=== PATIENT | female | born 1990 | race Caucasian/White ===

== ENCOUNTER 2017-03-24 01:18 | Inpatient (IN) | payer BC ==
--- NOTE | 2017-03-24 01:40 | EDM.PDOC ---
ED HPI GENERAL MEDICAL PROBLEM - General Chief Complaint: Drug or Alcohol Abuse Stated Complaint: [facility] Time Seen by Provider: 03/24/17 01:24 Source of Information: Reports: Patient, EMS History Limitations: Reports: Intoxication - History of Present Illness INITIAL COMMENTS - FREE TEXT/NARRATIVE: The patient came via [facility] for overdose. She took 40 1mg klonipin in an attempt to kill herself. She has been depressed and had an issue with her boyfriend. She also drank some wine. EMS informed us there were empty wine bottles in her house. She tried to overdose back in July and she was sen to [facility] in [place]. She sees a psychologist there. She does admit to me she was trying to hurt herself. She denies fever, chills, cough, chest, pain, shortness of breath, nausea or vomiting. Onset: Sudden Duration: Hour(s): Improves with: Reports: None Worsens with: Reports: None Associated Symptoms: Reports: No Other Symptoms - Related Data Allergies Allergy/AdvReac Type Severity Reaction Status Date / Time amoxicillin Allergy Hives Verified 03/13/16 13:00 Penicillins Allergy Hives Verified 03/13/16 13:00 Home Meds: Home Meds ALPRAZolam [Xanax] 0.5 mg PO Q6H PRN 03/13/16 [History] ClonazePAM [KlonoPIN] 1 mg PO BEDTIME 03/13/16 [History] [place] Carbonate 1,200 mg PO DAILY 03/13/16 [History] busPIRone [Buspar] 7.5 mg PO BID #15 tablet 03/13/16 [Rx] Past Medical History Psychiatric History: Reports: Anxiety, Bipolar Social & Family History - Family History Family Medical History: Noncontributory - Tobacco Use Smoking Status *Q: Current Every Day Smoker Years of Tobacco use: 10 Packs/Tins Daily: 0.5 - Recreational Drug Use Recreational Drug Use: No ED ROS GENERAL - Review of Systems Review Of Systems: See Below Constitutional: Reports: No Symptoms HEENT: Reports: No Symptoms Respiratory: Reports: No Symptoms Cardiovascular: Reports: No Symptoms Endocrine: Reports: No Symptoms GI/Abdominal: Reports: No Symptoms : Reports: No Symptoms Musculoskeletal: Reports: No Symptoms Skin: Reports: No Symptoms Neurological: Reports: Confusion Psychiatric: Reports: Suicidal Ideation ED EXAM, BEHAVIORAL HEALTH - Physical Exam Exam: See Below Exam Limited By: No Limitations General Appearance: Alert, No Apparent Distress Ears: Normal External Exam Nose: Normal Inspection Head: Atraumatic, Normocephalic Neck: Normal Inspection Respiratory/Chest: No Respiratory Distress, Lungs Clear, Normal Breath Sounds Cardiovascular: Regular Rate, Rhythm, No Edema, No Murmur GI/Abdominal: Soft, Non-Tender, No Organomegaly, No Mass Extremities: Normal Inspection Neurological: Other (She has slurred speech and appears intoxicated) COURSE, BEHAVIORAL HEALTH COMP - Course Vital Signs: Last Vital Signs Temp 98.4 F 03/24/17 01:23 Pulse 122 H 03/24/17 01:23 Resp 19 03/24/17 01:23 BP 143/109 H 03/24/17 01:23 Pulse Ox 94 L 03/24/17 01:52 Orders, Labs, Meds: Active Orders 24 hr Category Date Time Status Cardiac Monitoring [RC] . DIRECTED Care 03/24/17 01:33 Active EKG Documentation Completion [RC] STAT Care 03/24/17 01:34 Active Oxygen Therapy [RC] PRN Care 03/24/17 01:33 Active Peripheral IV Care [RC] . DIRECTED Care 03/24/17 01:34 Active Sodium Chloride 0.9% [Normal Saline] 1,000 ml Med 03/24/17 01:45 Active IV ASDIRECTED Sodium Chloride 0.9% [Saline Flush] Med 03/24/17 01:33 Active 10 ml FLUSH ASDIRECTED PRN Peripheral IV Insertion Adult [OM.PC] Stat Oth 03/24/17 01:33 Ordered Medication Orders Sodium Chloride (Normal Saline) 1,000 mls @ 125 mls/hr IV ASDIRECTED WARREN Last Admin: 03/24/17 01:51 Dose: 125 mls/hr Sodium Chloride (Saline Flush) 10 ml FLUSH ASDIRECTED PRN PRN Reason: Keep Vein Open Last Admin: 03/24/17 01:51 Dose: 10 ml Laboratory Tests 03/24/17 03/24/17 03/24/17 Range/Units 01:35 01:59 01:59 WBC 8.85 (3.98-10.04) K/mm3 RBC 4.92 (3.98-5.22) M/mm3 Hgb 15.2 (11.2-15.7) gm/L Hct 43.1 (34.1-44.9) % MCV 87.6 (79.4-94.8) fl MCH 30.9 (25.6-32.2) pg MCHC 35.3 (32.2-35.5) g/dl RDW Std Deviation 40.2 (36.4-46.3) fL Plt Count 270 (182-369) K/mm3 MPV 11.4 (9.4-12.3) fl Neut % (Auto) 64.9 (34.0-71.1) % Lymph % (Auto) 26.2 (19.3-51.7) % [place] % (Auto) 6.3 (4.7-12.5) % Eos % (Auto) 1.6 (0.7-5.8) Baso % (Auto) 0.8 (0.1-1.2) % Neut # (Auto) 5.74 (1.56-6.13) K/mm3 Lymph # (Auto) 2.32 (1.18-3.74) K/mm3 [place] # (Auto) 0.56 H (0.24-0.36) K/mm3 Eos # (Auto) 0.14 (0.04-0.36) K/mm3 Baso # (Auto) 0.07 (0.01-0.08) K/mm3 Sodium 147 H (136-145) mEq/L Potassium 3.4 L (3.5-5.1) mEq/L Chloride 110 H (98-107) mEq/L Carbon Dioxide 24 (21-32) mEq/L Anion Gap 16.4 H (5-15) BUN 8 (7-18) mg/dL Creatinine 0.6 (0.55-1.02) mg/dL Est Cr Clr Drug Dosing 116.50 mL/min Estimated GFR (MDRD) > 60 (>60) mL/min BUN/Creatinine Ratio 13.3 L (14-18) Glucose 101 (74-106) mg/dL Calcium 9.0 (8.5-10.1) mg/dL Total Bilirubin 0.3 (0.2-1.0) mg/dL AST 14 L (15-37) U/L ALT 25 (14-59) U/L Alkaline Phosphatase 88 (46-116) U/L Total Protein 7.5 (6.4-8.2) g/dl Albumin 3.9 (3.4-5.0) g/dl Globulin 3.6 gm/dL Albumin/Globulin Ratio 1.1 (1-2) HCG, Qual (NEGATIVE) Salicylates (2.8-20) mg/dL Urine Opiates Screen Negative (NEGATIVE) Ur Buprenorphine Scrn Negative (NEGATIVE) Ur Oxycodone Screen Negative (NEGATIVE) Urine Methadone Screen Negative (NEGATIVE) Ur Propoxyphene Screen Negative (NEGATIVE) Acetaminophen 0 L (10-30) ug/mL Ur Barbiturates Screen Negative (NEGATIVE) Ur Tricyclics Screen Negative (NEGATIVE) Ur Phencyclidine Scrn Negative (NEGATIVE) Ur Amphetamine Screen Negative (NEGATIVE) U Methamphetamines Scrn Negative (NEGATIVE) U Benzodiazepines Scrn Negative (NEGATIVE) U Cocaine Metab Screen Negative (NEGATIVE) U Marijuana (THC) Screen Negative (NEGATIVE) Ethyl Alcohol 0.16 (0.00) gm% 03/24/17 03/24/17 Range/Units 01:59 01:59 WBC (3.98-10.04) K/mm3 RBC (3.98-5.22) M/mm3 Hgb (11.2-15.7) gm/L Hct (34.1-44.9) % MCV (79.4-94.8) fl MCH (25.6-32.2) pg MCHC (32.2-35.5) g/dl RDW Std Deviation (36.4-46.3) fL Plt Count (182-369) K/mm3 MPV (9.4-12.3) fl Neut % (Auto) (34.0-71.1) % Lymph % (Auto) (19.3-51.7) % [place] % (Auto) (4.7-12.5) % Eos % (Auto) (0.7-5.8) Baso % (Auto) (0.1-1.2) % Neut # (Auto) (1.56-6.13) K/mm3 Lymph # (Auto) (1.18-3.74) K/mm3 [place] # (Auto) (0.24-0.36) K/mm3 Eos # (Auto) (0.04-0.36) K/mm3 Baso # (Auto) (0.01-0.08) K/mm3 Sodium (136-145) mEq/L Potassium (3.5-5.1) mEq/L Chloride (98-107) mEq/L Carbon Dioxide (21-32) mEq/L Anion Gap (5-15) BUN (7-18) mg/dL Creatinine (0.55-1.02) mg/dL Est Cr Clr Drug Dosing mL/min Estimated GFR (MDRD) (>60) mL/min BUN/Creatinine Ratio (14-18) Glucose (74-106) mg/dL Calcium (8.5-10.1) mg/dL Total Bilirubin (0.2-1.0) mg/dL AST (15-37) U/L ALT (14-59) U/L Alkaline Phosphatase (46-116) U/L Total Protein (6.4-8.2) g/dl Albumin (3.4-5.0) g/dl Globulin gm/dL Albumin/Globulin Ratio (1-2) HCG, Qual Negative (NEGATIVE) Salicylates 2.0 L (2.8-20) mg/dL Urine Opiates Screen (NEGATIVE) Ur Buprenorphine Scrn (NEGATIVE) Ur Oxycodone Screen (NEGATIVE) Urine Methadone Screen (NEGATIVE) Ur Propoxyphene Screen (NEGATIVE) Acetaminophen (10-30) ug/mL Ur Barbiturates Screen (NEGATIVE) Ur Tricyclics Screen (NEGATIVE) Ur Phencyclidine Scrn (NEGATIVE) Ur Amphetamine Screen (NEGATIVE) U Methamphetamines Scrn (NEGATIVE) U Benzodiazepines Scrn (NEGATIVE) U Cocaine Metab Screen (NEGATIVE) U Marijuana (THC) Screen (NEGATIVE) Ethyl Alcohol (0.00) gm% Medications Generic Name Dose Route Start Last Admin Trade Name Freq PRN Reason Stop Dose Admin Sodium Chloride 1,000 mls @ 125 mls/hr 03/24/17 01:45 03/24/17 01:51 Normal Saline IV 125 mls/hr ASDIRECTED WARREN Administration Sodium Chloride 10 ml 03/24/17 01:33 03/24/17 01:51 Saline Flush FLUSH 10 ml ASDIRECTED PRN Administration Keep Vein Open Discontinued Medications Generic Name Dose Route Start Last Admin Trade Name Freq PRN Reason Stop Dose Admin Nicotine 14 mg 03/24/17 02:53 03/24/17 02:58 Habitrol TRDERM 03/24/17 02:54 14 mg ONETIME ONE Administration Re-Assessment/Re-Exam: I have ordered an IV, labs, UDS and EKG. Her CBC was negative. Her Na was a little elevated at 147. Her K was a little low at 3.4. Her HCG was negative. Her salicylates and tylenol were negaitve. Her UDS was negative. Her ETOH was 0.16. I called Dr Gregg and she agreed to the admission. Departure - Departure Time of Disposition: 03:05 Disposition: Admitted As Inpatient 65 Condition: poor Clinical Impression: Alcohol abuse Depression Qualifiers: Depression Type: major depressive disorder Major depression recurrence: recurrent Active/Remission status: currently active Major depression episode severity: moderate Qualified Code(s): F33.1 - Major depressive disorder, recurrent, moderate Overdose Qualifiers: Encounter type: initial encounter Injury intent: intentional self-harm Qualified Code(s): T50.902A - Poisoning by unspecified drugs, medicaments and biological substances, intentional self-harm, initial encounter Alcohol intoxication Qualifiers: Complication of substance-induced condition: with unspecified complication Qualified Code(s): F10.129 - Alcohol abuse with intoxication, unspecified Suicide gesture Qualifiers: Encounter type: initial encounter Qualified Code(s): X83.8XXA - Intentional self-harm by other specified means, initial encounter - Discharge Information - My Orders Last 24 Hours: My Active Orders 03/24/17 01:33 Cardiac Monitoring [RC] . DIRECTED Oxygen Therapy [RC] PRN Sodium Chloride 0.9% [Saline Flush] 10 ml FLUSH ASDIRECTED PRN Peripheral IV Insertion Adult [OM.PC] Stat 03/24/17 01:34 EKG Documentation Completion [RC] STAT Peripheral IV Care [RC] . DIRECTED 03/24/17 01:45 Sodium Chloride 0.9% [Normal Saline] 1,000 ml IV ASDIRECTED - Assessment/Plan Last 24 Hours: My Active Orders 03/24/17 01:33 Cardiac Monitoring [RC] . DIRECTED Oxygen Therapy [RC] PRN Sodium Chloride 0.9% [Saline Flush] 10 ml FLUSH ASDIRECTED PRN Peripheral IV Insertion Adult [OM.PC] Stat 03/24/17 01:34 EKG Documentation Completion [RC] STAT Peripheral IV Care [RC] . DIRECTED 03/24/17 01:45 Sodium Chloride 0.9% [Normal Saline] 1,000 ml IV ASDIRECTED
[2017-03-24] MEDS ORDERED: Sodium Chloride 0.9% 1,000 ML IV SCH (01:45)
[2017-03-24] MEDS: Sodium Chloride 0.9% 10 ML Syringe FLUSH PRN ×2 (01:51→09:57)
[2017-03-24 02:28] LABS: ACETAMINOPHEN 0 ug/mL (10-30)
[2017-03-24] MEDS ORDERED: Nicotine 14 MG/24 Hr Patch TRDERM ONE (02:53)
[2017-03-24] MEDS ORDERED: Ondansetron 4 MG/2 ML SDV IVPUSH PRN (04:14)
[2017-03-24] MEDS ORDERED: Metoprolol Tartrate 5 MG/5 ML SDV IVPUSH PRN (07:48)
[2017-03-24] MEDS ORDERED: LORazepam 2 MG/ML MDV IVPUSH PRN ×2 (07:53→12:57)
[2017-03-24] MEDS ORDERED: Haloperidol Lactate 5 MG/ML SDV IVPUSH PRN (07:53)
[2017-03-24] MEDS: cloNIDine 0.1 MG Tab PO SCH ×4 (08:17→23:47)
[2017-03-24] MEDS: chlordiazePOXIDE 25 MG Cap PO SCH ×3 (08:18→23:50)
[2017-03-24] MEDS ORDERED: LORazepam 2 MG/ML MDV IVPUSH ONE (09:37)
--- NOTE | 2017-03-24 10:22 | PCM.HP ---
H&P History of Present Illness - General Date of Service: 03/24/17 Admit Problem/Dx: Admission Diagnosis/Problem Admission Diagnosis/Problem Drug overdose Source of Information: Provider History Limitations: Reports: No Limitations - History of Present Illness Initial Comments - Free Text/Narative: 26 year old female presents after trying to kill herself with use of prescription and alcohol. She admits to previous attempts; has been admitted as an inpatient in the past to [facility] for depression with suicide attempt. On this occasion she has taken 40 mg of Klonopin (40 x 1mg) with ETOH. Onset of Symptoms: Reports: Sudden Symptom Onset Date: 03/23/17 Duration of Symptoms: Reports: Hour(s): Location: Reports: Generalized Quality: Reports: Same as Previous Episode Improves with: Reports: None Worsens with: Reports: None Associated Symptoms: Reports: Other (depression) Headache Pain Score (Numeric/FACES): 2 - Related Data Allergies/Adverse Reactions: Allergies Allergy/AdvReac Type Severity Reaction Status Date / Time amoxicillin Allergy Hives Verified 03/13/16 13:00 Penicillins Allergy Hives Verified 03/13/16 13:00 Home Medications: Home Meds ARIPiprazole [Abilify] 15 mg PO DAILY 03/24/17 [History] [place] Carbonate 1,200 mg PO DAILY 03/24/17 [History] cloNIDine [Catapres] 0.1 mg PO DAILY PRN 03/24/17 [History] Past Medical History Cardiovascular History: Reports: Hypertension [employer] History: Reports: Therapeutic Psychiatric History: Reports: Anxiety, Bipolar, Depression - Infectious Disease History Infectious Disease History: Reports: None Social & Family History - Family History Family Medical History: Noncontributory - Tobacco Use Smoking Status *Q: Current Every Day Smoker Years of Tobacco use: 13 Packs/Tins Daily: 0.5 Used Tobacco, but Quit: No Second Hand Smoke Exposure: No - Caffeine Use Caffeine Use: Reports: Coffee - Recreational Drug Use Recreational Drug Use: No H&P Review of Systems - Review of Systems: Review Of Systems: See Below General: Reports: No Symptoms HEENT: Reports: No Symptoms Pulmonary: Reports: No Symptoms Cardiovascular: Reports: No Symptoms Gastrointestinal: Reports: No Symptoms Genitourinary: Reports: No Symptoms Musculoskeletal: Reports: No Symptoms Skin: Reports: No Symptoms Psychiatric: Reports: Depression Neurological: Reports: No Symptoms Hematologic/Lymphatic: Reports: No Symptoms Immunologic: Reports: No Symptoms Exam - Exam Exam: See Below - Vital Signs Vital Signs: Last Vital Signs Temp 37.6 C 03/24/17 08:24 Pulse 101 H 03/24/17 09:58 Resp 18 03/24/17 08:24 BP 177/123 H 03/24/17 09:58 Pulse Ox 96 03/24/17 08:24 Weight: 193.6 kg - Exam Quality Assessment: Supplemental Oxygen, DVT Prophylaxis General: Alert, Oriented, Cooperative HEENT: Conjunctiva Clear, EOMI, Nares Patent, Normal Nasal Septum, Pupils Equal , Pupils Reactive, PERRLA Neck: Supple, Trachea Midline Lungs: Normal Respiratory Effort Cardiovascular: Regular Rate, Regular Rhythm Abdomen: Normal Bowel Sounds, Soft (Female) Exam: Deferred Rectal (Female) Exam: Deferred Back Exam: Normal Inspection Extremities: Normal Pulses Skin: Warm, Dry Neurological: Cranial Nerves Intact, Normal Speech Neuro Extensive - Mental Status: Alert, Oriented x3 Neuro Extensive - Motor, Sensory, Reflexes: CN II-XII Intact Psychiatric: Alert, Depressed - Patient Data Lab Results last 24 hrs: Laboratory Results - last 24 hr 03/24/17 03/24/17 Range/Units 08:00 08:00 WBC 8.14 (3.98-10.04) K/mm3 RBC 4.81 (3.98-5.22) M/mm3 Hgb 14.9 (11.2-15.7) gm/L Hct 42.9 (34.1-44.9) % MCV 89.2 (79.4-94.8) fl MCH 31.0 (25.6-32.2) pg MCHC 34.7 (32.2-35.5) g/dl RDW Std Deviation 41.6 (36.4-46.3) fL Plt Count 266 (182-369) K/mm3 MPV 11.2 (9.4-12.3) fl Neut % (Auto) 57.6 (34.0-71.1) % Lymph % (Auto) 26.7 (19.3-51.7) % [place] % (Auto) 12.3 (4.7-12.5) % Eos % (Auto) 2.3 (0.7-5.8) Baso % (Auto) 1.0 (0.1-1.2) % Neut # (Auto) 4.69 (1.56-6.13) K/mm3 Lymph # (Auto) 2.17 (1.18-3.74) K/mm3 [place] # (Auto) 1.00 H (0.24-0.36) K/mm3 Eos # (Auto) 0.19 (0.04-0.36) K/mm3 Baso # (Auto) 0.08 (0.01-0.08) K/mm3 Sodium 145 (136-145) mEq/L Potassium 3.8 (3.5-5.1) mEq/L Chloride 109 H (98-107) mEq/L Carbon Dioxide 24 (21-32) mEq/L Anion Gap 15.8 H (5-15) BUN 10 (7-18) mg/dL Creatinine 0.7 (0.55-1.02) mg/dL Est Cr Clr Drug Dosing 99.86 mL/min Estimated GFR (MDRD) > 60 (>60) mL/min BUN/Creatinine Ratio 14.3 (14-18) Glucose 89 (74-106) mg/dL Calcium 9.1 (8.5-10.1) mg/dL Magnesium 1.9 (1.8-2.4) mg/dl Result Diagrams: 03/24/17 08:00 03/24/17 08:00 *Q Meaningful Use (ADM) - VTE *Q VTE Criteria *Q: - Stroke *Q Stroke Criteria *Q: - AMI *Q AMI Criteria *Q: - Problem List (1) Alcohol abuse SNOMED Code(s): 08651584 ICD Code: F10.10 - ALCOHOL ABUSE, UNCOMPLICATED Status: Acute Current Visit: Yes (2) Alcohol intoxication SNOMED Code(s): 86099827 ICD Code: F10.129 - ALCOHOL ABUSE WITH INTOXICATION, UNSPECIFIED Status: Acute Current Visit: Yes Qualifiers: Complication of substance-induced condition: with unspecified complication (3) Depression SNOMED Code(s): 69579830 ICD Code: F32.9 - MAJOR DEPRESSIVE DISORDER, SINGLE EPISODE, UNSPECIFIED Status: Acute Current Visit: Yes Qualifiers: Depression Type: major depressive disorder Major depression recurrence: recurrent Active/Remission status: currently active Major depression episode severity: moderate Qualified Code(s): F33.1 - Major depressive disorder, recurrent, moderate (4) Overdose SNOMED Code(s): 34489583 ICD Code: T50.901A - POISONING BY UNSP DRUG/MEDS/BIOL SUBST, ACCIDENTAL, INIT Status: Acute Current Visit: Yes Qualifiers: Encounter type: initial encounter Injury intent: intentional self-harm Qualified Code(s): T50.902A - Poisoning by unspecified drugs, medicaments and biological substances, intentional self-harm, initial encounter (5) Suicide gesture SNOMED Code(s): 01205627 ICD Code: X83.8XXA - INTENTIONAL SELF-HARM BY OTHER SPECIFIED MEANS, INIT ENCNTR Status: Acute Current Visit: Yes Qualifiers: Encounter type: initial encounter Qualified Code(s): X83.8XXA - Intentional self-harm by other specified means, initial encounter (6) Bipolar disorder SNOMED Code(s): 66239964 ICD Code: F31.9 - BIPOLAR DISORDER, UNSPECIFIED Status: Acute Current Visit: No Qualifiers: Active/Remission status: currently active Current bipolar episode type: depressed Current episode severity: moderate Qualified Code(s): F31.32 - Bipolar disorder, current episode depressed, moderate Problem List Initiated/Reviewed/Updated: Yes Orders Last 24hrs: Active Orders 24 hr Category Date Time Status Bedrest [RC] ASDIRECTED Care 03/24/17 04:14 Active Suicide Precautions [RC] Q15M Care 03/24/17 04:14 Active Nothing Per Oral Diet [DIET] Diet 03/24/17 Lunch Active Regular Diet [DIET] Diet 03/24/17 Breakfast Active Haloperidol Lactate [Haldol] Med 03/24/17 07:53 Active 1 mg IVPUSH Q8H PRN LORazepam [Ativan] Med 03/24/17 07:53 Active 2 mg IVPUSH Q6H PRN Metoprolol Tartrate [Lopressor] Med 03/24/17 07:48 Active 5 mg IVPUSH Q6H PRN Ondansetron [Zofran] Med 03/24/17 04:14 Active 4 mg IVPUSH Q6HR PRN chlordiazePOXIDE [Librium] Med 03/24/17 08:00 Active 25 mg PO Q8H cloNIDine [Catapres] Med 03/24/17 08:00 Active 0.1 mg PO Q8H Resuscitation Status Routine Resus Stat 03/24/17 04:14 Ordered Medication Orders Chlordiazepoxide HCl (Librium) 25 mg PO Q8H [facility] Last Admin: 03/24/17 08:18 Dose: 25 mg Clonidine HCl (Catapres) 0.1 mg PO Q8H [facility] Last Admin: 03/24/17 08:17 Dose: 0.1 mg Haloperidol Lactate (Haldol) 1 mg IVPUSH Q8H PRN PRN Reason: restlessness Lorazepam (Ativan) 2 mg IVPUSH Q6H PRN PRN Reason: Anxiety Metoprolol Tartrate (Lopressor) 5 mg IVPUSH Q6H PRN PRN Reason: Tachycardia Ondansetron HCl (Zofran) 4 mg IVPUSH Q6HR PRN PRN Reason: Nausea Sodium Chloride (Saline Flush) 10 ml FLUSH ASDIRECTED PRN PRN Reason: Keep Vein Open Last Admin: 03/24/17 09:57 Dose: 10 ml Admin: 03/24/17 01:51 Dose: 10 ml Assessment/Plan Comment:: Impression: Major depression with suicide attempt Bipolar Disorder Prescrition drug abuse ETOH abuse Plan: IVF MVI/Folic Acid/Thiamine Benzodiazepine/Antipyschotic agents SA Counselor/Psychiatric evaluation Suggest IP therapy for above. Home meds Daily Labs DVT/GI prophylaxis
[2017-03-24] MEDS ORDERED: QUEtiapine 25 MG Tab PO ONE (15:30)
--- NOTE | 2017-03-24 19:02 | CONS ---
CONSULTING PHYSICIAN: Ruiz Suarez LAC DATE OF CONSULTATION: 03/24/2017 TIME: 5:17 p.m. IDENTIFICATION: The patient is a 26-year-old female who was admitted to [facility] on 03/24/2017 after a suicide attempt by in-combination use of Klonopin and alcohol. Her admitting DORIAN is 0.16. An alcohol and drug consultation was requested by her medical treatment team. SOURCE OF INFORMATION: The patient's self report, hospital records, background research, and [facility]. The patient refused to sign ROIs to speak with her parents or to obtain psychiatric records from Dr. Amin at [facility] in [place], [place]. HISTORY OF PRESENT ILLNESS: The patient reports that she was raised in [place], [place] by her biological parents, who are still together. She has 3 brothers. She graduated from [employer] in 2007 where she maintained above average grades. She was not involved in extracurricular activities as she worked for [employer] for 5 years throughout her school years. She states that she got along well with other kids at school and had good friends. After graduating from high school, she completed a semester at [employer] and moved to [place]. She attended the [employer] in [place] and graduated in 2009. 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 Four years ago, she moved back to [place] and opened [employer]. 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 The patient has never been , but had a relationship this past year that ended in July 2016. This relationship was the primary cause of her 1st attempted suicide as she states "he just used me." She is currently in another relationship; however, he broke up with her after she attempted to suicide and texted her today, 03/24/2017 that they were over. She reports that this suicide attempt was also primarily because of this relationship. MENTAL HEALTH: The patient reports that she has been diagnosed with bipolar disorder and her psychiatrist is Dr. Amin at [facility] in [facility]. In reviewing her prescription drug monitoring report, it indicates that she was prescribed alprazolam 0.5 mg between March 2014 and December 2015, then switched to clonazepam 0.5 mg 30/10 until July 2016. The patient stopped using this medication in July and subsequently tried to commit suicide in that month, July 2016. The patient reports that she has not seen her psychiatrist in quite some time and she has not been taking any medication. SUBSTANCE ABUSE HISTORY: Tobacco. The patient reports that she started smoking cigarettes around age 16 and currently smokes a half a pack a day. Cannabis. The patient reports that she started smoking pot while in high school and since that time, has smoked "here and there" maybe once every couple months if she is around people who have it, she smokes with them. She denies buying her own or selling the drugs. Alcohol. The patient reports that she began drinking at age 13 and drank every weekend while she was in high school as well as the semester at [employer]. She would drink up to a bottle of [employer] straight from the bottle. In high school, she began to drink to blackout drunk and typically drank to this level per occasion. She reports drinking to intoxication when she drinks and when asked what her parents thought about her drinking, she replies "they choose to see what they want to see." When she was in [place] the patient reports drinking 2-3 times a week to blackout drunk, typically a 12-pack of beer and 2 bottles of wine. While in [place], she drank on the weekends 2-8 mixed drinks per occasion. Since moving back to [place], the patient has been drinking every night at least a bottle of wine nightly. When she goes to the bar or parties on her days off, she drinks to blackout drunk typically 8-10 [place] [employer] or up to a bottle of [employer]. In the past year, she switched from whiskey to vodka or Tequila and typically drinks a bottle of wine after work and on days off or at the bar 7 to 9 mixed drinks and usually drinking to blackout drunk. She reports putting herself in dangerous situations while in a blackout and has gone home with multiple men over the years while in a blackout. In the past week, she reports drinking 2 bottles of wine a night and as she sunk into depression realized she had a bottle of Klonopin, which she had been prescribed to her in the past. She states she just did not care. The patient denies all use of other illicit or illicit drugs. DIAGNOSES: The patient meets DSM 5 criteria for the following diagnosis: 1. F10.20, alcohol use disorder, moderate. 2. F17.200, tobacco use disorder, severe. 3. F12.20, cannabis use disorder, moderate. ASAM DIMENSIONS: 1. Dimension 1: Score 1. The patient can tolerate and cope with withdrawal discomfort. Poses minimal risk of severe withdrawal. 2. Dimension 2: Score 0. The patient displays full functioning with good ability to cope with physical discomfort. 3. Dimension 3: Score 3. The patient has difficulty with impulse control and lacks coping skills. She is demonstrating frequent thoughts of suicide including a plan and means as this is her 2nd suicide attempt in 8 months. She seems to have a mental health disorder that is significantly impairing her. 4. Dimension 4: Score 3. The patient seems to have minimal awareness of her addiction or mental health disorder and is superficially cooperative. 5. Dimension 5: Score 3. The patient has little recognition and understanding of relapse and recidivism issues and displays a high vulnerability for further substance use or mental health problems. 6. Dimension 6: Score 3. The patient is not engaged in structured meaningful activity, has significant pressure from her family to perform and her current love life is the cause of her suicidal behavior. ASSESSMENT SUMMARY: The patient appears to be a nice young woman who suffers from a dual diagnosis self-reported bipolar disorder and biologically driven alcohol use disorder, moderate and what appears to be stage II alcoholism. Her primary diagnosis, however, seems to be her mental health problems as throughout her evaluation there was a re-occurring theme of low self-esteem manifesting by her allowing people in her life to treat her disrespectfully and compromising herself to please them emotionally and physically. 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 She reports she feels she is a disappointment to her parents. In this, her 2nd suicide attempt, there is a common denominator with her 1st attempt love relationships. She attempted suicide in large part because of her current boyfriend and to compound continued risk, he broke up with her today 03/24/2017 one day after her attempt to take her life. Exacerbating her mental health issues is daily drinking in excess and often times to black out intoxication. She appears to be in stage II alcoholism as she is not presenting with physical withdrawal, however, further assessment is needed to understand the severity of her psychological dependence. She is reporting that she has been drinking "to cope" with her life as we discussed why she has not been seeing her psychiatrist or using prescribed medications. The patient reports that her alcohol use has been her coping mechanism. The patient is meeting ASAM criteria for level 3.5, clinically managed, high intensity residential treatment. With a strong psychiatric component; however, her alcohol use cannot be adequately addressed until her mental health issues are evaluated and she is under psychiatric care. RECOMMENDATION: The patient is referred to Dr. Cabrera for further psychiatric evaluation and possible placement in a psychiatric facility to address mental health issues. After the patient has been stabilized and is under the care of a psychiatrist. Level 3.5, clinically managed, high intensity residential treatment is recommended to address her substance abuse issues. [facility] /[id number]
[2017-03-24] MEDS ORDERED: QUEtiapine 25 MG Tab PO SCH (21:00)
[2017-03-24] MEDS: Thiamine 100 MG Tab PO SCH (21:19)
[2017-03-24] MEDS: Topiramate 25 MG Tab PO SCH (21:19)
[2017-03-25] MEDS: cloNIDine 0.1 MG Tab PO SCH ×2 (07:56→16:00)
[2017-03-25] MEDS: buPROPion 150 MG Tab.ER PO SCH (08:38)
[2017-03-25] MEDS: Folic Acid 1 MG Tab PO SCH (08:38)
[2017-03-25] MEDS: chlordiazePOXIDE 25 MG Cap PO SCH (08:38)
[2017-03-25] MEDS: Topiramate 25 MG Tab PO SCH ×2 (08:39→20:54)
[2017-03-25] MEDS: QUEtiapine 25 MG Tab PO SCH ×2 (08:39→20:54)
[2017-03-25] MEDS: Lithium Carbonate 300 MG Tab.ER PO SCH (08:39)
[2017-03-25] MEDS ORDERED: Metoprolol Tartrate 5 MG/5 ML SDV IVPUSH PRN (08:58)
[2017-03-25] MEDS ORDERED: hydrALAZINE 20 MG/ML SDV IVPUSH PRN (08:58)
--- NOTE | 2017-03-25 08:58 | PCM.PN ---
- General Info Date of Service: 03/25/17 Admission Dx/Problem (Free Text): Admission Diagnosis/Problem Admission Diagnosis/Problem Drug overdose Subjective Update: Follow up Functional Status: Reports: pain controlled, tolerating diet, ambulating, urinating, new symptoms (tired) - Review of Systems General: Denies: Fever, Malaise HEENT: Reports: no symptoms Pulmonary: Denies: shortness of breath Cardiovascular: Denies: Chest Pain Gastrointestinal: Denies: Abdominal pain, Nausea, Vomiting Genitourinary: Reports: no symptoms Musculoskeletal: Denies: neck pain Skin: Denies: cyanosis, jaundice, diaphoresis, pruritis, rash Neurological: Denies: Confusion, Headache, Pre-Existing Deficit, Syncope, Weakness Psychiatric: Denies: confusion, depression, anxiety, agitation, cravings, hallucinations, suicidal ideation, homicidal ideation Systems Review Comment:: No overnight issues. She feels tired this am. She is relatively well. She is not homocidal or suicidal. - Patient Data Vitals - most recent: Last Vital Signs Temp 36.7 C 03/25/17 07:50 Pulse 83 03/25/17 04:00 Resp 15 03/25/17 07:50 BP 114/88 03/25/17 07:56 Pulse Ox 94 L 03/25/17 07:50 Weight - most recent: 88.224 kg I&O - last 24 hours: Intake & Output 03/24/17 03/25/17 03/25/17 22:59 06:59 14:59 Intake Total 1160 350 Output Total 600 300 Balance 1160 -250 -300 Lab Results last 24 hrs: Laboratory Results - last 24 hr 03/25/17 03/25/17 Range/Units 06:20 06:20 WBC 9.05 (3.98-10.04) K/mm3 RBC 4.63 (3.98-5.22) M/mm3 Hgb 14.5 (11.2-15.7) gm/L Hct 41.4 (34.1-44.9) % MCV 89.4 (79.4-94.8) fl MCH 31.3 (25.6-32.2) pg MCHC 35.0 (32.2-35.5) g/dl RDW Std Deviation 41.3 (36.4-46.3) fL Plt Count 236 (182-369) K/mm3 MPV 11.4 (9.4-12.3) fl Neut % (Auto) 67.7 (34.0-71.1) % Lymph % (Auto) 20.3 (19.3-51.7) % Oliver % (Auto) 8.8 (4.7-12.5) % Eos % (Auto) 2.4 (0.7-5.8) Baso % (Auto) 0.6 (0.1-1.2) % Neut # (Auto) 6.12 (1.56-6.13) K/mm3 Lymph # (Auto) 1.84 (1.18-3.74) K/mm3 Oliver # (Auto) 0.80 H (0.24-0.36) K/mm3 Eos # (Auto) 0.22 (0.04-0.36) K/mm3 Baso # (Auto) 0.05 (0.01-0.08) K/mm3 Sodium 142 (136-145) mEq/L Potassium 3.2 L (3.5-5.1) mEq/L Chloride 108 H (98-107) mEq/L Carbon Dioxide 22 (21-32) mEq/L Anion Gap 15.2 H (5-15) BUN 12 (7-18) mg/dL Creatinine 0.7 (0.55-1.02) mg/dL Est Cr Clr Drug Dosing 99.86 mL/min Estimated GFR (MDRD) > 60 (>60) mL/min BUN/Creatinine Ratio 17.1 (14-18) Glucose 101 (74-106) mg/dL Calcium 8.9 (8.5-10.1) mg/dL Magnesium 1.8 (1.8-2.4) mg/dl Med Orders - Current: Current Medications Bupropion HCl (Wellbutrin Xl) 150 mg PO DAILY [facility] Last Admin: 03/25/17 08:38 Dose: 150 mg Chlordiazepoxide HCl (Librium) 25 mg PO Q8H [facility] Last Admin: 03/25/17 08:38 Dose: 25 mg Clonidine HCl (Catapres) 0.1 mg PO Q8H [facility] Last Admin: 03/25/17 07:56 Dose: Not Given Folic Acid (Folic Acid) 1 mg PO DAILY [facility] Last Admin: 03/25/17 08:38 Dose: 1 mg [place] Carbonate (Lithobid) 1,200 mg PO DAILY [facility] Last Admin: 03/25/17 08:39 Dose: 1,200 mg Lorazepam (Ativan) 1 mg IVPUSH Q6H PRN PRN Reason: Anxiety Ondansetron HCl (Zofran) 4 mg IVPUSH Q6HR PRN PRN Reason: Nausea Quetiapine Fumarate (Seroquel) 25 mg PO BID [facility] Last Admin: 03/25/17 08:39 Dose: 25 mg Sodium Chloride (Saline Flush) 10 ml FLUSH ASDIRECTED PRN PRN Reason: Keep Vein Open Last Admin: 03/24/17 09:57 Dose: 10 ml Thiamine HCl (Vitamin B-1) 100 mg PO BEDTIME [facility] Last Admin: 03/24/17 21:19 Dose: 100 mg Topiramate (Topamax) 25 mg PO BID [facility] Stop: 03/31/17 09:00 Last Admin: 03/25/17 08:39 Dose: 25 mg Topiramate (Topamax) 50 mg PO BID [facility] Discontinued Medications Haloperidol Lactate (Haldol) 1 mg IVPUSH Q8H PRN PRN Reason: restlessness Sodium Chloride (Normal Saline) 1,000 mls @ 125 mls/hr IV ASDIRECTED [facility] Last Admin: 03/24/17 01:51 Dose: 125 mls/hr Lorazepam (Ativan) 2 mg IVPUSH Q6H PRN PRN Reason: Anxiety Lorazepam (Ativan) 1 mg IVPUSH ONETIME ONE Stop: 03/24/17 09:38 Last Admin: 03/24/17 09:57 Dose: 1 mg Metoprolol Tartrate (Lopressor) 5 mg IVPUSH Q6H PRN PRN Reason: Tachycardia Nicotine (Habitrol) 14 mg TRDERM ONETIME ONE Stop: 03/24/17 02:54 Last Admin: 03/24/17 02:58 Dose: 14 mg Non-Formulary Medication (Aripiprazole [Abilify]) 15 mg PO DAILY [facility] Quetiapine Fumarate (Seroquel) 50 mg PO BEDTIME [facility] Quetiapine Fumarate (Seroquel) 50 mg PO ONETIME ONE Stop: 03/24/17 15:31 Last Admin: 03/24/17 16:11 Dose: 50 mg Quetiapine Fumarate (Seroquel) 12.5 mg PO BID [facility] - Exam General: alert, oriented, cooperative, no acute distress HEENT: Pupils equal, Pupils reactive, EOMI, Mucous membr. moist/pink Neck: supple, trachea midline, no JVD, no thyromegaly Lungs: Clear to auscultation, Normal respiratory effort Cardiovascular: Regular Rate, Regular Rhythm Abdomen: bowel sounds present, soft, no tenderness, no distension (Female) Exam: Deferred Back Exam: Normal Inspection, Decreased Range of Motion Extremities: no edema, normal pulses, no tenderness/swelling, no clubbing, no cyanosis, no calf tenderness Skin: warm, dry, intact Neurological: no new focal deficit Psy/Mental Status: alert, normal affect, normal mood, withdrawal symptoms. No: anxious, depressed, suicidal ideation, homicidal ideation - Problem List Review Problem List Initiated/Reviewed/Updated: Yes - My Orders Last 24 Hours: My Active Orders 03/25/17 09:00 ARIPiprazole [Abilify] 15 mg PO DAILY [place] Carbonate [[place] Carbonate] 1,200 mg PO DAILY - Plan Plan:: Assessment/Plan: Acute: Major depression with suicide attempt via ingestion of Klonopin - Consulted Dr. Cabrera: recommends Wellbutrin 150 q am, Topamax 50 mg BID for 7 days then 50 mg thereafter for mood stability and Anxiety, Seroquel 50 mg po qhs for racing thoughts, ruminations, anxiety and mood stability - Also recommended, AA rep, pastoral guidance, Chemical dependency rehab and Inpatient psych once medically stable Bipolar Disorder - Dr. Cabrera following Prescription Drug Abuse - Ingestion a hand full of klonopin she used to take but has been discontinued by her Psych Dr. Gibbs - This is not her first episode - She had done this before each time she has relationship issues ETOH Abuse - DORIAN 0.16 - CIWA score is low - Continue CIWA protocol Excessive Sedation (Seroquel, Topamax and Librium +/- Ativan) - Seroquel cut down to 25 mg po BID - Discontinue Librium Anxiety - On Seroquel and Topamax - She was taking clodinine PRN for maintenance dose, should be stopped Nicotine Abuse - Received nicotine patch x1 Chronic: HTN PTSD ETOH Dependence Nicotine Dependence Plan: She is clinically stable Continue MVI/Folic Acid/Thiamine Routine AM Labs Change Clonidine from schedule to PRN dosing DVT/GI prophylaxis Additional orders as above Possible transfer to inpatient psych in AM
[2017-03-25] MEDS ORDERED: QUEtiapine 25 MG Tab PO SCH (09:00)
[2017-03-25] MEDS ORDERED: LITHIUM CARBONATE 1200 MG PO SCH (09:00)
[2017-03-25] MEDS ORDERED: Non-Formulary Medication 1 Each (Aripiprazole [Abilify] 15 MG) PO SCH (09:00)
[2017-03-25] MEDS ORDERED: Magnesium Oxide 400 MG Tab PO ONE (09:15)
[2017-03-25] MEDS: Potassium Chloride 20 MEQ Tab.ER PO SCH ×2 (09:32→13:23)
[2017-03-25] MEDS: Sodium Chloride 0.9% 10 ML Syringe FLUSH PRN (09:35)
--- NOTE | 2017-03-25 13:07 | CONS ---
CONSULTING PHYSICIAN: Clay Cabrera MD DATE OF CONSULTATION: 03/24/2017 This is a 60-minute inpatient clinical event. IDENTIFICATION: The patient is a 26-year-old female who is admitted to the inpatient MICU at [facility] in [place], [place], on 03/24/2017. She is seen for psychiatric evaluation. CHIEF COMPLAINT: "I took some pills mixed with alcohol...I got into a fight with my boyfriend." HISTORY OF PRESENT ILLNESS: This patient is a 26-year-old female who reports that she had been drinking and overdosed on about 40 Klonopin in the phase of her alcohol intoxication. She states she has been having relationship issues with her boyfriend. She states she has been increasingly isolative. She has been depressed, having a lot of anxiety, lot of crying episodes, and some mood swings. She states she has been sleeping quite poorly prior to admission, about 4 hours of sleep per 24-hour period. She states that she has been having racing thoughts, ruminations, poor focus, poor concentration, and lack of appetite. She states that she did have an back in 06/2016 and since that time, she has been more depressed in dealing with a lot of guilty feelings. She states prior to this event, she had generally been doing pretty good. At this point in time, she is denying that she is suicidal or homicidal. She is also denying any psychotic, delusional, or paranoid symptoms. She does report a prior suicide attempt in 07/2016, soon after the , and this also was under similar circumstances where she was drinking and heavily intoxicated. She did have a BAL of 0.16 on admission. She states that she would like to get on some type of medications to help her with her depression, her mood swings, her anxiety, and her racing thoughts, and ruminations. MEDICATIONS: Medications at the time of presentation; Librium, Catapres, and Ativan. ALLERGIES: 1. Amoxicillin. 2. Penicillin. PAST MEDICAL HISTORY: Hypertension. REVIEW OF SYSTEMS: Aside from cardiovascular, all other major organ systems are negative at this point in time for acute difficulties or complications. FAMILY PSYCHIATRIC AND CD HISTORY: The patient reports maternal grandmother to have a history of bipolar affective disease, and she knows there is also history of alcoholism in the family. PAST PSYCHIATRIC AND CD HISTORY: The patient reports one psychiatric hospitalization in 07/2016. Denies any chemical dependency treatment. She states she normally drinks a couple of glasses of wine per week, but she has been drinking heavier lately. She reports 2 suicide attempts, the first one was in 07/2016. She does reports some self- injurious behavior history about one time per year. In terms of frequency, she denies any eating disorder history. She is a klke-kffu-zgd-day smoker x13 years. Denies any abuse issues while being raised. Medication history includes lithium, which caused her quite a bit of nausea; and Abilify, which helped with her mood. She has a past psychiatric diagnosis of bipolar affective disease, depression. Her primary psychiatrist is Dr. Eloisa putnam at [facility]. SOCIAL HISTORY: The patient was born in [place], [place], and raised in [place], [place]. She is the fourth of 4 siblings, having 3 brothers. The patient's parents were throughout her childhood and adolescence. Father managed the [employer]. Mother worked as a real estate operations manager. The patient's highest level of education is cosmetology degree and one semester of college. She has never been . She does not have any children. She reports one in 06/2016, that she "thinks about a lot, and she feels sad and guilty." She is currently working at a [employer]. 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 She lives in [place] by herself. Denies having any weapons at her house. She does have a dog. She denies any prior service or any current legal difficulties. She is an [employer]. She enjoys working out, going to the gym, shopping, and spending time with her dog. MENTAL STATUS EXAM: The patient is a 26-year-old white female in no apparent distress. Speech is of regular rate and rhythm. The patient is cognitively oriented. Psychomotor activities within normal limits. There is no abnormal motor movements or tics observed. Gait and station are not observed. This patient is lying in bed for the interview. Mood is depressed and anxious. Affect is consistent with stated mood, restrictive, but cooperative overall for the purposes of the inpatient psychiatric consult. There is no behavioral or stated evidence of acute suicidal or homicidal ideation or acute psychotic, delusional, or paranoid symptoms. Thought processes are significant for racing thoughts and ruminations; however, there are no acute manic symptoms or loose associations evident. Judgment and insight do appear impaired at this point in time. Motivation for help, however, appears fair to good. VITALS: 130/90, 93, 21, and 98.6 degrees. IMPRESSION: [place] I: 1. Bipolar affective disease, mixed type, F31.60. 2. Post-traumatic stress disorder, F43.10. 3. Alcohol dependence, F10.20. [place] II: None. [place] III: 1. Hypertension. 2. Medical complications status post overdose. [place] IV: Severe. [place] V: 50. PLAN: 1. Begin trial of Wellbutrin XL 150 mg q.a.m. for mood. 2. Begin Topamax 25 mg b.i.d. x7 days and increasing to 50 mg b.i.d. thereafter to help with mood instability and anxiety reduction. 3. Begin Seroquel 50 mg at bedtime for racing thoughts and ruminations, anxiety reduction, mood instability, as well as sleep initiation and maintenance. 4. Folic acid supplementation. 5. Thiamine supplementation. 6. rep to visit the patient. 7. Pastoral guidance. 8. Chemical dependency consult to assess need for treatment. 9. Continue one-to-one and have primary medical treatment team reassess in 24 hours for safety purposes. 10.Recommend transferring the patient to inpatient psychiatry when medically stable for further psychiatric stabilization. 11.Recommend the patient follow up with outpatient psychiatry when she is discharged back to community to assess her overall function and efficacy of her newly initiated treatment plan. 12.I will continue follow up with the patient on an as-needed basis going forward while she remains on the unit. 13.We will follow up with the patient sooner if any complications in the interim. 14.Crisis plan is in place. [facility] /[id number]
[2017-03-25] MEDS: Thiamine 100 MG Tab PO SCH (20:55)
[2017-03-25] MEDS: Nicotine 21 MG/24 Hr Patch TRDERM SCH (22:01)
[2017-03-26] MEDS: cloNIDine 0.1 MG Tab PO SCH ×2 (00:51→09:33)
--- NOTE | 2017-03-26 09:10 | PCM.DCSUM1 ---
Discharge Summary - Discharge Data Discharge Date: 03/26/17 Discharge Disposition: DC/Tfer to Inpt Rehab Fac 62 Condition: Good - Discharge Diagnosis/Problem(s) (1) Depression SNOMED Code(s): 61019180 ICD Code: F32.9 - MAJOR DEPRESSIVE DISORDER, SINGLE EPISODE, UNSPECIFIED Status: Acute Qualifiers: Depression Type: major depressive disorder Major depression recurrence: recurrent Active/Remission status: currently active Major depression episode severity: moderate Qualified Code(s): F33.1 - Major depressive disorder, recurrent, moderate (2) Nicotine dependence SNOMED Code(s): 36267836 ICD Code: F17.200 - NICOTINE DEPENDENCE, UNSPECIFIED, UNCOMPLICATED Status : Chronic Qualifiers: Nicotine product type: cigarettes Substance use status: uncomplicated Qualified Code(s): F17.210 - Nicotine dependence, cigarettes, uncomplicated (3) PTSD (post-traumatic stress disorder) SNOMED Code(s): 81981449 ICD Code: F43.10 - POST-TRAUMATIC STRESS DISORDER, UNSPECIFIED Status: Chronic (4) HTN (hypertension) SNOMED Code(s): 73221026 ICD Code: I10 - ESSENTIAL (PRIMARY) HYPERTENSION Status: Chronic Qualifiers: Hypertension type: essential hypertension Qualified Code(s): I10 - Essential (primary) hypertension (5) Alcohol dependence SNOMED Code(s): 69207801, 002519489 ICD Code: F10.20 - ALCOHOL DEPENDENCE, UNCOMPLICATED Status: Chronic Qualifiers: Substance use status: unspecified alcohol-induced disorder Qualified Code(s ): F10.29 - Alcohol dependence with unspecified alcohol-induced disorder (6) Anxiety SNOMED Code(s): 21616529 Status: Chronic (7) Bipolar disorder SNOMED Code(s): 90296548 ICD Code: F31.9 - BIPOLAR DISORDER, UNSPECIFIED Status: Chronic Qualifiers: Active/Remission status: currently active Current bipolar episode type: depressed Current episode severity: moderate Qualified Code(s): F31.32 - Bipolar disorder, current episode depressed, moderate (8) Alcohol intoxication SNOMED Code(s): 55009380 ICD Code: F10.129 - ALCOHOL ABUSE WITH INTOXICATION, UNSPECIFIED Status: Resolved Qualifiers: Complication of substance-induced condition: with unspecified complication Qualified Code(s): F10.929 - Alcohol use, unspecified with intoxication, unspecified (9) Overdose SNOMED Code(s): 59684986 ICD Code: T50.901A - POISONING BY UNSP DRUG/MEDS/BIOL SUBST, ACCIDENTAL, INIT Status: Resolved Qualifiers: Encounter type: initial encounter Injury intent: intentional self-harm Qualified Code(s): T50.902A - Poisoning by unspecified drugs, medicaments and biological substances, intentional self-harm, initial encounter - Patient Summary/Data Operative Procedure(s) Performed: None Complications: None Consults: Consultations 03/24/17 15:38 Consult to Spiritual Care [CONS] Routine 03/24/17 15:41 Consult to Sales Office Administrator [CONS] Routine Recommended Follow-up Testing/Procedures: None Hospital Course: Patient was primarily admitted for suicide attempt via ingestion of non toxic substance. She was provided supportive care until she was medically cleared. Psych and SA were consulted for further evaluation. Both specialist recommended inpatient psych treatment as well as chemical dependency rehab. On this admission she was also found to be intoxicated with a DORIAN level of 0.16. She was put on CIWA protocol and she slowly improve on this regimen. Her CIWA score on the day of her discharge was almost zero. Patient is now medically stable for transfer. Her hospital course was uncomplicated. She will be going in for inpatient psych treatment in [place] under the services of Dr. Amin who follows her outpatient. Patient will leave the facility as soon as local law enforcement staff is here to transport to [place]. - Patient Instructions Diet: Usual Diet as Tolerated Activity: As Tolerated Driving: Do Not Drive Showering/Bathing: May Shower Notify Provider of: Fever, Increased Pain, Swelling and Redness, Nausea and/or Vomiting Other/Special Instructions: - Please take all medications as directed. - Follow up with your family doctor and with your psychiatrist right after discharge from inpatient rehab. - If you experience mental health crisis, call 911 or take yourself to the nearest hospital for further medical care. - Transfer to [place] for inpatient psych care - Discharge Plan Prescriptions/Med Rec: QUEtiapine [SEROquel] 25 mg PO BID #60 tablet Topiramate [Topamax] 50 mg PO BID #12 tablet Topiramate [Topamax] 25 mg PO BID #60 tablet buPROPion [Wellbutrin XL] 150 mg PO DAILY #30 tab.er Home Medications: Home Meds QUEtiapine [SEROquel] 25 mg PO BID #60 tablet 03/26/17 [Rx] Topiramate [Topamax] 25 mg PO BID #60 tablet 03/26/17 [Rx] Topiramate [Topamax] 50 mg PO BID #12 tablet 03/26/17 [Rx] buPROPion [Wellbutrin XL] 150 mg PO DAILY #30 tab.er 03/26/17 [Rx] Patient Handouts: Smoking Cessation, Tips for Success, [id number], No-harm Safety Contract, Suicidal Feelings: How to Help Yourself, Alcohol Abuse and Nutrition Referrals: PCP,None [Primary Care Provider] - - Discharge Summary/Plan Comment DC Time >30 min.: Yes (45 mins) Discharge Summary/Plan Comment: Transfer to [place] for inpatient psych treatment under the services of Dr. Amin (patient's psychiatrist). - General Info Date of Service: 03/26/17 Admission Dx/Problem (Free Text: Admission Diagnosis/Problem Admission Diagnosis/Problem Drug overdose Subjective Update: Follow up Functional Status: Reports: pain controlled, tolerating diet, ambulating, urinating, new symptoms (tired) - Review of Systems General: Denies: Fever, Weakness, Fatigue, Malaise HEENT: Reports: no symptoms Pulmonary: Denies: shortness of breath Cardiovascular: Denies: Chest Pain, Palpitations, Dyspnea on Exertion Gastrointestinal: Denies: Abdominal pain, Decreased appetite, Difficulty swallowing, Nausea, Vomiting Genitourinary: Reports: no symptoms Musculoskeletal: Reports: no symptoms Skin: Reports: no symptoms Neurological: Denies: Confusion, Dizziness, Headache, Seizure, Difficulty Walking, Weakness, Gait Disturbance Psychiatric: Denies: depression, mood lability, anxiety, agitation, hallucinations, suicidal ideation, homicidal ideation Systems Review Comment: No overnight or acute issues. She feels tired but clinically stable. She has no new complaints. - Patient Data Vitals - Most Recent: Last Vital Signs Temp 36.8 C 03/26/17 07:42 Pulse 72 03/26/17 07:42 Resp 14 03/26/17 07:42 BP 140/90 03/26/17 07:42 Pulse Ox 96 03/26/17 07:42 Weight - Most Recent: 87.77 kg I&O - Last 24 hours: Intake & Output 03/25/17 03/26/17 03/26/17 22:59 06:59 14:59 Intake Total 570 891 Balance 570 891 Lab Results - Last 24 hrs: Laboratory Results - last 24 hr 03/26/17 03/26/17 Range/Units 06:03 06:03 WBC 10.94 H (3.98-10.04) K/mm3 RBC 4.79 (3.98-5.22) M/mm3 Hgb 14.8 (11.2-15.7) gm/L Hct 42.9 (34.1-44.9) % MCV 89.6 (79.4-94.8) fl MCH 30.9 (25.6-32.2) pg MCHC 34.5 (32.2-35.5) g/dl RDW Std Deviation 40.7 (36.4-46.3) fL Plt Count 241 (182-369) K/mm3 MPV 11.1 (9.4-12.3) fl Neut % (Auto) 71.5 H (34.0-71.1) % Lymph % (Auto) 17.8 L (19.3-51.7) % [place] % (Auto) 7.0 (4.7-12.5) % Eos % (Auto) 3.0 (0.7-5.8) Baso % (Auto) 0.4 (0.1-1.2) % Neut # (Auto) 7.82 H (1.56-6.13) K/mm3 Lymph # (Auto) 1.95 (1.18-3.74) K/mm3 [place] # (Auto) 0.77 H (0.24-0.36) K/mm3 Eos # (Auto) 0.33 (0.04-0.36) K/mm3 Baso # (Auto) 0.04 (0.01-0.08) K/mm3 Sodium 142 (136-145) mEq/L Potassium 3.8 (3.5-5.1) mEq/L Chloride 110 H (98-107) mEq/L Carbon Dioxide 21 (21-32) mEq/L Anion Gap 14.8 (5-15) BUN 6 L (7-18) mg/dL Creatinine 0.7 (0.55-1.02) mg/dL Est Cr Clr Drug Dosing 99.86 mL/min Estimated GFR (MDRD) > 60 (>60) mL/min BUN/Creatinine Ratio 8.6 L (14-18) Glucose 102 (74-106) mg/dL Calcium 9.1 (8.5-10.1) mg/dL Magnesium 2.2 (1.8-2.4) mg/dl Med Orders - Current: Current Medications Bupropion HCl (Wellbutrin Xl) 150 mg PO DAILY [facility] Last Admin: 03/25/17 08:38 Dose: 150 mg Clonidine HCl (Catapres) 0.1 mg PO Q8H [facility] Last Admin: 03/26/17 00:51 Dose: 0.1 mg Folic Acid (Folic Acid) 1 mg PO DAILY [facility] Last Admin: 03/25/17 08:38 Dose: 1 mg Hydralazine HCl (Apresoline) 20 mg IVPUSH Q4H PRN PRN Reason: Hypertension [place] Carbonate (Lithobid) 1,200 mg PO DAILY [facility] Last Admin: 03/25/17 08:39 Dose: 1,200 mg Lorazepam (Ativan) 1 mg IVPUSH Q6H PRN PRN Reason: Anxiety Last Admin: 03/25/17 17:53 Dose: 1 mg Magnesium Sulfate (Pharmacy To Dose - Magnesium Replacement) 1 dose .XX ASDIRECTED [facility] Metoprolol Tartrate (Lopressor) 5 mg IVPUSH Q4H PRN PRN Reason: Tachycardia Miscellaneous Information (Remove Patch) 1 ea TRDERM DAILY [facility] Nicotine (Habitrol) 21 mg TRDERM DAILY [facility] Last Admin: 03/25/17 22:01 Dose: 21 mg Ondansetron HCl (Zofran) 4 mg IVPUSH Q6HR PRN PRN Reason: Nausea Potassium Chloride (Pharmacy To Dose - Potassium Replacement) 1 dose .XX ASDIRECTED [facility] Quetiapine Fumarate (Seroquel) 25 mg PO BID [facility] Last Admin: 03/25/17 20:54 Dose: 25 mg Sodium Chloride (Saline Flush) 10 ml FLUSH ASDIRECTED PRN PRN Reason: Keep Vein Open Last Admin: 03/25/17 09:35 Dose: 10 ml Thiamine HCl (Vitamin B-1) 100 mg PO BEDTIME [facility] Last Admin: 03/25/17 20:55 Dose: 100 mg Topiramate (Topamax) 25 mg PO BID [facility] Stop: 03/31/17 09:00 Last Admin: 03/25/17 20:54 Dose: 25 mg Topiramate (Topamax) 50 mg PO BID [facility] Discontinued Medications Chlordiazepoxide HCl (Librium) 25 mg PO Q8H [facility] Last Admin: 03/25/17 08:38 Dose: 25 mg Haloperidol Lactate (Haldol) 1 mg IVPUSH Q8H PRN PRN Reason: restlessness Sodium Chloride (Normal Saline) 1,000 mls @ 125 mls/hr IV ASDIRECTED [facility] Last Admin: 03/24/17 01:51 Dose: 125 mls/hr Lorazepam (Ativan) 2 mg IVPUSH Q6H PRN PRN Reason: Anxiety Lorazepam (Ativan) 1 mg IVPUSH ONETIME ONE Stop: 03/24/17 09:38 Last Admin: 03/24/17 09:57 Dose: 1 mg Magnesium Oxide (Magnesium Oxide) 400 mg PO ONETIME ONE Stop: 03/25/17 09:16 Last Admin: 03/25/17 09:33 Dose: 400 mg Metoprolol Tartrate (Lopressor) 5 mg IVPUSH Q6H PRN PRN Reason: Tachycardia Nicotine (Habitrol) 14 mg TRDERM ONETIME ONE Stop: 03/24/17 02:54 Last Admin: 03/24/17 02:58 Dose: 14 mg Non-Formulary Medication (Aripiprazole [Abilify]) 15 mg PO DAILY [facility] Potassium Chloride (Klor-Con M20) 40 meq PO Q4H [facility] Stop: 03/25/17 13:16 Last Admin: 03/25/17 13:23 Dose: 40 meq Quetiapine Fumarate (Seroquel) 50 mg PO BEDTIME [facility] Quetiapine Fumarate (Seroquel) 50 mg PO ONETIME ONE Stop: 03/24/17 15:31 Last Admin: 03/24/17 16:11 Dose: 50 mg Quetiapine Fumarate (Seroquel) 12.5 mg PO BID [facility] - Exam General: Reports: alert, oriented, cooperative, no acute distress HEENT: Reports: Pupils equal, Pupils reactive, Mucous membr. moist/pink Neck: Reports: supple, trachea midline, no JVD, no thyromegaly Lungs: Reports: Clear to auscultation, Normal respiratory effort Cardiovascular: Reports: Regular Rate, Regular Rhythm Abdomen: Reports: bowel sounds present, soft, no tenderness, no distension (Female) Exam: Deferred Rectal (Female) Exam: Deferred Back Exam: Reports: Normal Inspection, Decreased Range of Motion Extremities: Reports: no edema, normal pulses, no tenderness/swelling, no clubbing, no cyanosis, no calf tenderness Skin: Reports: warm, dry, intact Neurological: Reports: no new focal deficit Psy/Mental Status: Reports: alert, normal affect, normal mood. Denies: suicidal ideation, homicidal ideation, withdrawal symptoms *Q Meaningful Use (DIS) - VTE *Q VTE Criteria *Q: - Stroke *Q Stroke Criteria *Q: - AMI *Q AMI Criteria *Q:
[2017-03-26] MEDS: Folic Acid 1 MG Tab PO SCH (09:33)
[2017-03-26] MEDS: Nicotine 21 MG/24 Hr Patch TRDERM SCH (09:33)
[2017-03-26] MEDS: Lithium Carbonate 300 MG Tab.ER PO SCH (09:34)
[2017-03-26] MEDS: Topiramate 25 MG Tab PO SCH (09:35)
[2017-03-26] MEDS: buPROPion 150 MG Tab.ER PO SCH (09:35)
[2017-03-26] MEDS: QUEtiapine 25 MG Tab PO SCH (09:35)
--- NOTE | 2017-03-26 10:11 | PCM.PN ---
- General Info Date of Service: 03/26/17 Admission Dx/Problem (Free Text): Admission Diagnosis/Problem Admission Diagnosis/Problem Drug overdose Subjective Update: Follow up Functional Status: Reports: pain controlled, tolerating diet, ambulating, urinating, new symptoms (tired) - Review of Systems General: Denies: Fever, Chills HEENT: Reports: no symptoms Pulmonary: Denies: shortness of breath Cardiovascular: Denies: Chest Pain Gastrointestinal: Denies: Abdominal pain, Nausea, Vomiting Genitourinary: Reports: no symptoms Musculoskeletal: Reports: no symptoms Skin: Denies: cyanosis, pallor, diaphoresis Neurological: Denies: Confusion, Pre-Existing Deficit, Difficulty Walking, Weakness, Gait Disturbance Psychiatric: Denies: depression, anxiety, agitation, hallucinations, suicidal ideation, homicidal ideation Systems Review Comment:: No overnight issues. She feels tired but she reports no acute issues. Her vitals are stable. - Patient Data Vitals - most recent: Last Vital Signs Temp 36.8 C 03/26/17 07:42 Pulse 72 03/26/17 07:42 Resp 14 03/26/17 07:42 BP 140/90 03/26/17 09:33 Pulse Ox 96 03/26/17 07:42 Weight - most recent: 87.77 kg I&O - last 24 hours: Intake & Output 03/25/17 03/26/17 03/26/17 22:59 06:59 14:59 Intake Total 570 891 Balance 570 891 Lab Results last 24 hrs: Laboratory Results - last 24 hr 03/26/17 03/26/17 Range/Units 06:03 06:03 WBC 10.94 H (3.98-10.04) K/mm3 RBC 4.79 (3.98-5.22) M/mm3 Hgb 14.8 (11.2-15.7) gm/L Hct 42.9 (34.1-44.9) % MCV 89.6 (79.4-94.8) fl MCH 30.9 (25.6-32.2) pg MCHC 34.5 (32.2-35.5) g/dl RDW Std Deviation 40.7 (36.4-46.3) fL Plt Count 241 (182-369) K/mm3 MPV 11.1 (9.4-12.3) fl Neut % (Auto) 71.5 H (34.0-71.1) % Lymph % (Auto) 17.8 L (19.3-51.7) % [place] % (Auto) 7.0 (4.7-12.5) % Eos % (Auto) 3.0 (0.7-5.8) Baso % (Auto) 0.4 (0.1-1.2) % Neut # (Auto) 7.82 H (1.56-6.13) K/mm3 Lymph # (Auto) 1.95 (1.18-3.74) K/mm3 [place] # (Auto) 0.77 H (0.24-0.36) K/mm3 Eos # (Auto) 0.33 (0.04-0.36) K/mm3 Baso # (Auto) 0.04 (0.01-0.08) K/mm3 Sodium 142 (136-145) mEq/L Potassium 3.8 (3.5-5.1) mEq/L Chloride 110 H (98-107) mEq/L Carbon Dioxide 21 (21-32) mEq/L Anion Gap 14.8 (5-15) BUN 6 L (7-18) mg/dL Creatinine 0.7 (0.55-1.02) mg/dL Est Cr Clr Drug Dosing 99.86 mL/min Estimated GFR (MDRD) > 60 (>60) mL/min BUN/Creatinine Ratio 8.6 L (14-18) Glucose 102 (74-106) mg/dL Calcium 9.1 (8.5-10.1) mg/dL Magnesium 2.2 (1.8-2.4) mg/dl Med Orders - Current: Current Medications Bupropion HCl (Wellbutrin Xl) 150 mg PO DAILY [facility] Last Admin: 03/26/17 09:35 Dose: 150 mg Clonidine HCl (Catapres) 0.1 mg PO Q8H [facility] Last Admin: 03/26/17 09:33 Dose: 0.1 mg Folic Acid (Folic Acid) 1 mg PO DAILY [facility] Last Admin: 03/26/17 09:33 Dose: 1 mg Hydralazine HCl (Apresoline) 20 mg IVPUSH Q4H PRN PRN Reason: Hypertension [place] Carbonate (Lithobid) 1,200 mg PO DAILY [facility] Last Admin: 03/26/17 09:34 Dose: 1,200 mg Lorazepam (Ativan) 1 mg IVPUSH Q6H PRN PRN Reason: Anxiety Last Admin: 03/25/17 17:53 Dose: 1 mg Magnesium Sulfate (Pharmacy To Dose - Magnesium Replacement) 1 dose .XX ASDIRECTED [facility] Metoprolol Tartrate (Lopressor) 5 mg IVPUSH Q4H PRN PRN Reason: Tachycardia Miscellaneous Information (Remove Patch) 1 ea TRDERM DAILY [facility] Last Admin: 03/26/17 09:35 Dose: 1 ea Nicotine (Habitrol) 21 mg TRDERM DAILY [facility] Last Admin: 03/26/17 09:33 Dose: 21 mg Ondansetron HCl (Zofran) 4 mg IVPUSH Q6HR PRN PRN Reason: Nausea Potassium Chloride (Pharmacy To Dose - Potassium Replacement) 1 dose .XX ASDIRECTED [facility] Quetiapine Fumarate (Seroquel) 25 mg PO BID [facility] Last Admin: 03/26/17 09:35 Dose: 25 mg Sodium Chloride (Saline Flush) 10 ml FLUSH ASDIRECTED PRN PRN Reason: Keep Vein Open Last Admin: 03/25/17 09:35 Dose: 10 ml Thiamine HCl (Vitamin B-1) 100 mg PO BEDTIME [facility] Last Admin: 03/25/17 20:55 Dose: 100 mg Topiramate (Topamax) 25 mg PO BID [facility] Stop: 03/31/17 09:00 Last Admin: 03/26/17 09:35 Dose: 25 mg Topiramate (Topamax) 50 mg PO BID [facility] Discontinued Medications Chlordiazepoxide HCl (Librium) 25 mg PO Q8H [facility] Last Admin: 03/25/17 08:38 Dose: 25 mg Haloperidol Lactate (Haldol) 1 mg IVPUSH Q8H PRN PRN Reason: restlessness Sodium Chloride (Normal Saline) 1,000 mls @ 125 mls/hr IV ASDIRECTED [facility] Last Admin: 03/24/17 01:51 Dose: 125 mls/hr Lorazepam (Ativan) 2 mg IVPUSH Q6H PRN PRN Reason: Anxiety Lorazepam (Ativan) 1 mg IVPUSH ONETIME ONE Stop: 03/24/17 09:38 Last Admin: 03/24/17 09:57 Dose: 1 mg Magnesium Oxide (Magnesium Oxide) 400 mg PO ONETIME ONE Stop: 03/25/17 09:16 Last Admin: 03/25/17 09:33 Dose: 400 mg Metoprolol Tartrate (Lopressor) 5 mg IVPUSH Q6H PRN PRN Reason: Tachycardia Nicotine (Habitrol) 14 mg TRDERM ONETIME ONE Stop: 03/24/17 02:54 Last Admin: 03/24/17 02:58 Dose: 14 mg Non-Formulary Medication (Aripiprazole [Abilify]) 15 mg PO DAILY [facility] Potassium Chloride (Klor-Con M20) 40 meq PO Q4H [facility] Stop: 03/25/17 13:16 Last Admin: 03/25/17 13:23 Dose: 40 meq Quetiapine Fumarate (Seroquel) 50 mg PO BEDTIME [facility] Quetiapine Fumarate (Seroquel) 50 mg PO ONETIME ONE Stop: 03/24/17 15:31 Last Admin: 03/24/17 16:11 Dose: 50 mg Quetiapine Fumarate (Seroquel) 12.5 mg PO BID [facility] - Exam General: alert, oriented, cooperative, no acute distress HEENT: Pupils equal, Pupils reactive, EOMI, Mucous membr. moist/pink Neck: supple, trachea midline, no JVD, no thyromegaly Lungs: Clear to auscultation, Normal respiratory effort Cardiovascular: Regular Rate, Regular Rhythm Abdomen: bowel sounds present, soft, no tenderness, no distension (Female) Exam: Deferred Back Exam: Normal Inspection, Decreased Range of Motion Extremities: no edema, normal pulses, no tenderness/swelling, no clubbing, no cyanosis, no calf tenderness Peripheral Pulses: 3+: Posterior Tibial (L), Posterior Tibial (R), Dorsalis Pedis (L), Dorsalis Pedis (R) Skin: warm, dry, intact Neurological: no new focal deficit Psy/Mental Status: alert, normal affect, normal mood - Problem List & Annotations (1) Depression SNOMED Code(s): 29531128 Code(s): F32.9 - MAJOR DEPRESSIVE DISORDER, SINGLE EPISODE, UNSPECIFIED Status: Acute Current Visit: Yes Qualifiers: Depression Type: major depressive disorder Major depression recurrence: recurrent Active/Remission status: currently active Major depression episode severity: moderate Qualified Code(s): F33.1 - Major depressive disorder, recurrent, moderate (2) Nicotine dependence SNOMED Code(s): 67178848 Code(s): F17.200 - NICOTINE DEPENDENCE, UNSPECIFIED, UNCOMPLICATED Status: Chronic Current Visit: Yes Qualifiers: Nicotine product type: cigarettes Substance use status: uncomplicated Qualified Code(s): F17.210 - Nicotine dependence, cigarettes, uncomplicated (3) PTSD (post-traumatic stress disorder) SNOMED Code(s): 39322285 Code(s): F43.10 - POST-TRAUMATIC STRESS DISORDER, UNSPECIFIED Status: Chronic Current Visit: Yes (4) HTN (hypertension) SNOMED Code(s): 74591898 Code(s): I10 - ESSENTIAL (PRIMARY) HYPERTENSION Status: Chronic Current Visit: Yes Qualifiers: Hypertension type: essential hypertension Qualified Code(s): I10 - Essential (primary) hypertension (5) Alcohol dependence SNOMED Code(s): 43374957, 691166461 Code(s): F10.20 - ALCOHOL DEPENDENCE, UNCOMPLICATED Status: Chronic Current Visit: Yes Qualifiers: Substance use status: unspecified alcohol-induced disorder Qualified Code(s ): F10.29 - Alcohol dependence with unspecified alcohol-induced disorder (6) Anxiety SNOMED Code(s): 84265390 Status: Chronic Current Visit: No (7) Bipolar disorder SNOMED Code(s): 02747720 Code(s): F31.9 - BIPOLAR DISORDER, UNSPECIFIED Status: Chronic Current Visit: No Qualifiers: Active/Remission status: currently active Current bipolar episode type: depressed Current episode severity: moderate Qualified Code(s): F31.32 - Bipolar disorder, current episode depressed, moderate (8) Alcohol intoxication SNOMED Code(s): 17014903 Code(s): F10.129 - ALCOHOL ABUSE WITH INTOXICATION, UNSPECIFIED Status: Resolved Current Visit: Yes Qualifiers: Complication of substance-induced condition: with unspecified complication Qualified Code(s): F10.929 - Alcohol use, unspecified with intoxication, unspecified (9) Overdose SNOMED Code(s): 32573763 Code(s): T50.901A - POISONING BY UNSP DRUG/MEDS/BIOL SUBST, ACCIDENTAL, INIT Status: Resolved Current Visit: Yes Qualifiers: Encounter type: initial encounter Injury intent: intentional self-harm Qualified Code(s): T50.902A - Poisoning by unspecified drugs, medicaments and biological substances, intentional self-harm, initial encounter - Problem List Review Problem List Initiated/Reviewed/Updated: Yes - My Orders Last 24 Hours: My Active Orders 03/25/17 10:10 Patient Status [ADT] Routine One To One Therapy [BH] Routine 03/25/17 21:00 Nicotine [Habitrol] 21 mg TRDERM DAILY 03/26/17 09:08 Ready for Discharge [RC] PER UNIT ROUTINE - Plan Plan:: Assessment/Plan: Acute: Major depression with suicide attempt via ingestion of Klonopin - Consulted Dr. Cabrera: recommends Wellbutrin 150 q am, Topamax 50 mg BID for 7 days then 50 mg thereafter for mood stability and Anxiety, Seroquel 50 mg po qhs for racing thoughts, ruminations, anxiety and mood stability - Also recommended, AA rep, pastoral guidance, Chemical dependency rehab and Inpatient psych once medically stable - She is currently not suicidal or homocidal Bipolar Disorder - Dr. Cabrera consulted - Currently on psychotropic medications Anxiety - On Seroquel and Topamax - She was taking clodinine PRN for maintenance dose, should be stopped Nicotine Abuse - Received nicotine patch x1 Resolved: Prescription Drug Abuse - Ingestion a hand full of klonopin she used to take but has been discontinued by her Psych Dr. Gibbs - This is not her first episode - She had done this before each time she has relationship issues ETOH Abuse - DORIAN 0.16 - CIWA score remains low - Continue CIWA protocol Excessive Sedation (Seroquel, Topamax and Librium +/- Ativan) - Seroquel cut down to 25 mg po BID - Discontinue Librium Chronic: HTN PTSD ETOH Dependence Nicotine Dependence Plan: She remains clinically stable Continue MVI/Folic Acid/Thiamine Routine AM Labs DVT/GI prophylaxis Additional orders as above Patient would not meet criteria for psych inpatient treatment; she is not currently suicidal per slag mixer whom I spoken to for planned transfer to [place]. At this point, we will ask patient if she is agreeable to go since she will possibly under the care of Dr. Amin (her outpatient Psychiatrist) in [place]. If this does not go through, back up plan will be chemical dependency rehab as recommended by Dr. Cabrera and [facility].
[2017-03-26 12:14] VITALS: BP 130/70
[2017-03-31] MEDS ORDERED: Topiramate 25 MG Tab PO SCH (21:00)
== END 2017-03-26 14:15 | DRG 812 ==
LOC: JD.ED 01:18 → JD.ICU 03:15 → JD.MS 03-25 14:44
PROVIDERS: ADMIT Internal Medicine Cardiovascular Disease; ATTEND Internal Medicine Cardiovascular Disease
PROC: HZ2ZZZZ Detoxification Services for Substance Abuse Treatment (ICD-10-PCS; principal; 2017-03-24)
DX: T42.4X2A Poisoning by benzodiazepines, intentional self-harm, initial encounter (principal); F10.129 Alcohol abuse with intoxication, unspecified; X83.8XXA Intentional self-harm by other specified means, initial encounter; F31.32 Bipolar disorder, current episode depressed, moderate; Y90.0 Blood alcohol level of less than 20 mg/100 ml; I10 Essential (primary) hypertension; F43.10 Post-traumatic stress disorder, unspecified; F12.20 Cannabis dependence, uncomplicated; F17.210 Nicotine dependence, cigarettes, uncomplicated
CPT/HCPCS: 36415; 80048; 80053; 80306; 83735; 84703; 85025; 93005; 96360; 99285; 99285-25; A9270-GY; G0480; J2060; J7040; J7050

== ENCOUNTER → 2017-07-20 | Day surgery (SDC) | payer BC ==
[~2017-07-20] MED LIST: HYDROmorphone 0.5 MG/0.5 ML Syringe IVPUSH PRN; HYDROmorphone 1 MG/ML Syringe ONE; Ketamine 500 mg/10 ML MDV ONE; Lactated Ringers 1,000 ML IV SCH; Lactated Ringers 1,000 ML ONE; Lidocaine 1% 4 ML ONE; Lidocaine 1% 50 ML MDV ONE; Lidocaine 1%/Sod Bicarbonate in NS 8.4% 1 ML Syringe SUBCUT ONE; Midazolam 1 MG/ML 2 ML SDV ONE; Ondansetron 4 MG/2 ML SDV IVPUSH PRN; Propofol 200 MG/20 ML SDV ONE; fentaNYL 100 MCG/2 ML SDV ONE
--- NOTE | 2017-07-20 20:36 | PCM.PREANE ---
Preanesthetic Assessment - Anesthesia/Transfusion/Family Hx Anesthesia History: Prior Anesthesia Without Reaction Family History of Anesthesia Reaction: No Transfusion History: No Prior Transfusion(s) Intubation History: Unknown - Review of Systems General: No Symptoms, Fatigue, Malaise Pulmonary: No Symptoms (Current every day smoker: 1/2 pack/day times 12 years.) Cardiovascular: No Symptoms (History of HTN.), Palpitations (with anxiety) Gastrointestinal: Decreased Appetite, Diarrhea (this am) Neurological: No Symptoms Other: Reports: Easy Bleeding, Depression, Anxiety (History of bipolar disorder. ) - Physical Assessment NPO Status Date: 07/19/17 NPO Status Time: 19:00 Pulse: 127 O2 Sat by Pulse Oximetry: 97 Respiratory Rate: 20 Blood Pressure: 137/98 Temperature: 37.5 C Vital Signs: Last Vital Signs Temp 37.5 C 07/20/17 18:07 Pulse 120 H 07/20/17 18:07 Resp 20 07/20/17 18:07 BP 137/98 H 07/20/17 18:07 Pulse Ox 97 07/20/17 18:07 Height: 1.63 m Weight: 83.915 kg ASA Class: 2 Mental Status: Alert & Oriented x3 Airway Class: Mallampati = 3 Dentition: Reports: Normal Dentition, Caries Thyro-Mental Finger Breadths: 3 Mouth Opening Finger Breadths: 3 ROM/Head Extension: Full Lungs: Clear to Auscultation, Normal Respiratory Effort Cardiovascular: Regular Rate, Regular Rhythm, No Murmurs - Lab Values: Labs reviewed and noted and within acceptable ranges to proceed with scheduled procedure. Patient refused HCG testing. - Imaging/EKG Impressions: EKG: ST rate= 116, with borderline prolonged QT segment noted. - Allergies Allergies/Adverse Reactions: Allergies Allergy/AdvReac Type Severity Reaction Status Date / Time amoxicillin Allergy Hives Verified 03/13/16 13:00 Penicillins Allergy Hives Verified 03/13/16 13:00 - Anesthesia Plan Pre-Op Medication Ordered: None - Acknowledgements Anesthesia Type Planned: MAC Pt an Appropriate Candidate for the Planned Anesthesia: Yes Alternatives and Risks of Anesthesia Discussed w Pt/Guardian: Yes Pt/Guardian Understands and Agrees with Anesthesia Plan: Yes PreAnesthesia Questionnaire Cardiovascular History: Reports: Hypertension BALER History: Reports: Therapeutic Psychiatric History: Reports: Anxiety, Bipolar, Depression - Infectious Disease History Infectious Disease History: Reports: None - SUBSTANCE USE Smoking Status *Q: Current Every Day Smoker Tobacco Use Within Last Twelve Months: Cigarettes Second Hand Smoke Exposure: No Recreational Drug Use History: No - HOME MEDS Home Medications: Home Meds QUEtiapine [SEROquel] 25 mg PO BID #60 tablet 03/26/17 [Rx] Topiramate [Topamax] 25 mg PO BID #60 tablet 03/26/17 [Rx] Topiramate [Topamax] 50 mg PO BID #12 tablet 03/26/17 [Rx] buPROPion [Wellbutrin XL] 150 mg PO DAILY #30 tab.er 03/26/17 [Rx] Lisinopril [Lisinopril] 07/20/17 [History] - CURRENT (IN HOUSE) MEDS Current Meds: Current Medications Hydromorphone HCl (Dilaudid) 0.5 mg IVPUSH Q1H PRN PRN Reason: Pain Last Admin: 07/20/17 19:18 Dose: 0.5 mg Lactated Ringer's (Ringers, Lactated) 1,000 mls @ 125 mls/hr IV ASDIRECTED WARREN Last Admin: 07/20/17 17:50 Dose: 125 mls/hr Discontinued Medications Dibucaine (Nupercainal 1% Oint) Confirm Administered Dose 28.35 gm .ROUTE .STK- MED ONE Stop: 07/20/17 20:17 Lidocaine HCl (Xylocaine 1%) Confirm Administered Dose 50 ml .ROUTE .STK-MED ONE Stop: 07/20/17 20:17 Lidocaine/Sodium Bicarbonate (Buffered Lidocaine 1% In Ns 8.4%) 0.1 ml SUBCUT ONETIME ONE Stop: 07/20/17 18:20 Last Admin: 07/20/17 17:50 Dose: 0.1 ml
--- NOTE | 2017-07-20 21:21 | PCM.OPNOTE ---
- General Post-Op/Procedure Note Date of Surgery/Procedure: 07/20/17 Operative Procedure(s): I&D candelaria rectal abscess Pre Op Diagnosis: candelaria rectal abscess Post-Op Diagnosis: Same Anesthesia Technique: MAC Primary Surgeon: Oskar Clifford EBL in mLs: 10 Complications: None Condition: Good
--- NOTE | 2017-07-20 21:39 | PCM48HPAN ---
Post Anesthesia Note - EVALUATION WITHIN 48HRS OF ANESTHETIC Vital Signs in Normal Range: Yes Patient Participated in Evaluation: Yes Respiratory Function Stable: Yes Airway Patent: Yes Cardiovascular Function Stable: Yes Hydration Status Stable: Yes Pain Control Satisfactory: Yes Nausea and Vomiting Control Satisfactory: Yes Mental Status Recovered: Yes
[2017-07-20 23:16] VITALS: BP 124/80
--- NOTE | 2017-07-21 06:52 | OR ---
DATE OF OPERATION: 07/20/2017 SURGEON: Oskar Clifford MD PREOPERATIVE DIAGNOSIS: Perirectal abscess. POSTOPERATIVE DIAGNOSIS: Perirectal abscess. OPERATION PERFORMED: Incision and drainage. ANESTHESIA: Done under IV sedation, 0.5% Marcaine. DESCRIPTION OF PROCEDURE: The patient was taken to the operating room, placed in supine position, connected to monitoring equipment, given IV sedation. She was placed in lithotomy position where the perianal area was prepped with Betadine, draped off in a sterile fashion. In the right posterior perianal space, an abscess was identified. The skin was anesthetized with 0.5% Marcaine. An incision was made and the abscess drained. It was then packed open and palpation of the anal canal did not demonstrate any fistula. This completed the procedure. The patient tolerated and was sent to recovery room in a stable condition. ESTIMATED BLOOD LOSS: 10 mL. MMODAL /[id number]
== END | disposition home or self-care (01) ==
LOC: JD.SDS 17:30
PROVIDERS: ATTEND Surgery
DX: K61.1 Rectal abscess (principal); F41.9 Anxiety disorder, unspecified; F31.9 Bipolar disorder, unspecified; I10 Essential (primary) hypertension; F17.210 Nicotine dependence, cigarettes, uncomplicated; Z98.890 Other specified postprocedural states; Z79.899 Other long term (current) drug therapy; Z88.0 Allergy status to penicillin
CPT/HCPCS: 46040; J1170; J2250; J3010; J7120; 00902; A9270-GY; J2704

== ENCOUNTER 2017-08-24 07:13 | Day surgery (SDC) | payer BC ==
[~2017-08-24 07:13] MED LIST changes: -HYDROmorphone 0.5 MG/0.5 ML Syringe IVPUSH PRN; -HYDROmorphone 1 MG/ML Syringe ONE; -Ketamine 500 mg/10 ML MDV ONE; -Lactated Ringers 1,000 ML ONE; -Lidocaine 1% 4 ML ONE; -Lidocaine 1% 50 ML MDV ONE; +Lidocaine 1%/Sod Bicarbonate in NS 8.4% 1 ML Syringe PRN; -Lidocaine 1%/Sod Bicarbonate in NS 8.4% 1 ML Syringe SUBCUT ONE; -Midazolam 1 MG/ML 2 ML SDV ONE; -Ondansetron 4 MG/2 ML SDV IVPUSH PRN; -Propofol 200 MG/20 ML SDV ONE; +Sodium Chloride 0.9% 10 ML Syringe FLUSH PRN; -fentaNYL 100 MCG/2 ML SDV ONE
--- NOTE | 2017-08-24 07:46 | PCM.PREANE ---
Preanesthetic Assessment - Anesthesia/Transfusion/Family Hx Anesthesia History: Prior Anesthesia Without Reaction Family History of Anesthesia Reaction: No Transfusion History: No Prior Transfusion(s) Intubation History: Unknown - Review of Systems General: No Symptoms Pulmonary: No Symptoms (Current smoker: 1/2 pack per day times 12 years.) Cardiovascular: No Symptoms (History of HTN), Palpitations (with anxiety) Gastrointestinal: No Symptoms Neurological: No Symptoms Other: Reports: Depression, Anxiety (History of bipolar disease) - Physical Assessment NPO Status Date: 08/23/17 NPO Status Time: 21:00 Pulse: 96 O2 Sat by Pulse Oximetry: 94 Respiratory Rate: 16 Blood Pressure: 124/89 Temperature: 37.2 C Height: 1.63 m Weight: 80 kg ASA Class: 2 Mental Status: Alert & Oriented x3 Airway Class: Mallampati = 2 Dentition: Reports: Normal Dentition, Caries Thyro-Mental Finger Breadths: 3 Mouth Opening Finger Breadths: 3 ROM/Head Extension: Full Lungs: Clear to Auscultation, Normal Respiratory Effort, Decreased Breath Sounds Cardiovascular: Regular Rate, Regular Rhythm, No Murmurs - Imaging/EKG Impressions: EK03/24/17 ST rate =116, prolonged QT interval - Allergies Allergies/Adverse Reactions: Allergies Allergy/AdvReac Type Severity Reaction Status Date / Time amoxicillin Allergy Hives Verified 08/23/17 11:16 Penicillins Allergy Hives Verified 08/23/17 11:16 - Anesthesia Plan Pre-Op Medication Ordered: None - Acknowledgements Anesthesia Type Planned: General Anesthesia, MAC Pt an Appropriate Candidate for the Planned Anesthesia: Yes Alternatives and Risks of Anesthesia Discussed w Pt/Guardian: Yes Pt/Guardian Understands and Agrees with Anesthesia Plan: Yes PreAnesthesia Questionnaire HEENT History: Reports: Allergic Rhinitis Cardiovascular History: Reports: Hypertension Respiratory History: Reports: None Gastrointestinal History: Reports: None Genitourinary History: Reports: None INFORMATION SYSTEMS CONSULTANT History: Reports: Therapeutic Musculoskeletal History: Reports: None Neurological History: Reports: None Psychiatric History: Reports: Addiction, Anxiety, Bipolar, Depression Endocrine/Metabolic History: Reports: None Hematologic History: Reports: None Immunologic History: Reports: None Oncologic (Cancer) History: Reports: None Dermatologic History: Reports: Other (See Below) Other Dermatologic History: perirectal abcess with incision and drainage - Infectious Disease History Infectious Disease History: Reports: None - Past Surgical History Head Surgeries/Procedures: Reports: None HEENT Surgical History: Reports: Oral Surgery Cardiovascular Surgical History: Reports: None Respiratory Surgical History: Reports: None GI Surgical History: Reports: None Female Surgical History: Reports: None Male Surgical History: Reports: None Endocrine Surgical History: Reports: None Neurological Surgical History: Reports: None Musculoskeletal Surgical History: Reports: None Dermatological Surgical History: Reports: Other (See Below) - SUBSTANCE USE Smoking Status *Q: Current Every Day Smoker Tobacco Use Within Last Twelve Months: Cigarettes Second Hand Smoke Exposure: No Recreational Drug Use History: No - HOME MEDS Home Medications: Home Meds Hydrochlorothiazide [Hydrochlorothiazide] 25 mg PO DAILY 08/23/17 [History] Levofloxacin [Levofloxacin] 500 mg PO BEDTIME 08/23/17 [History] Levonorgestrel [Mirena] 1 unit .ROUTE ASDIRECTED 08/23/17 [History] Lisinopril [Lisinopril] 40 g PO DAILY 08/23/17 [History] QUEtiapine Fumarate [Quetiapine Fumarate] 50 mg PO BEDTIME 08/23/17 [History] Zolpidem Tartrate [Zolpidem Tartrate] 10 mg PO BEDTIME 08/23/17 [History] amLODIPine Besylate [Amlodipine Besylate] 10 mg PO DAILY 08/23/17 [History] - CURRENT (IN HOUSE) MEDS Current Meds: Current Medications Lactated Ringer's (Ringers, Lactated) 1,000 mls @ 125 mls/hr IV ASDIRECTED WARREN Stop: 08/24/17 23:00 Lidocaine/Sodium Bicarbonate (Buffered Lidocaine 1% In Ns 8.4%) 0.25 ml .XX ONETIME PRN PRN Reason: Prior to IV Start Stop: 08/24/17 18:00 Sodium Chloride (Saline Flush) 10 ml FLUSH ASDIRECTED PRN PRN Reason: Keep Vein Open Stop: 08/24/17 18:00
[2017-08-24] MEDS ORDERED: fentaNYL 100 MCG/2 ML SDV ONE (07:57)
[2017-08-24] MEDS ORDERED: Propofol 200 MG/20 ML SDV ONE (07:57)
[2017-08-24] MEDS ORDERED: Ketamine 500 mg/10 ML MDV ONE (07:58)
[2017-08-24] MEDS ORDERED: Lidocaine 1% 4 ML ONE (07:58)
[2017-08-24] MEDS ORDERED: Midazolam 1 MG/ML 2 ML SDV ONE ×2 (07:58→09:22)
[2017-08-24] MEDS ORDERED: Lidocaine 1% with EPINEPHrine 1:100,000 20 ML MDV ONE (08:28)
[2017-08-24] MEDS ORDERED: Bupivacaine 0.5%/EPINEPHrine 1:200,000 50 ML MDV ONE (08:28)
--- NOTE | 2017-08-24 09:46 | PCM.OPNOTE ---
- General Post-Op/Procedure Note Date of Surgery/Procedure: 08/24/17 Operative Procedure(s): examination under anesthesia and I&D of posterior perineium abscess Pre Op Diagnosis: fistulae en ano Post-Op Diagnosis: perinium abscess Anesthesia Technique: MAC Primary Surgeon: Oskar Clifford EBL in mLs: 3 Condition: Good
[2017-08-24] MEDS ORDERED: Ondansetron 4 MG/2 ML SDV ONE (09:54)
[2017-08-24 10:00] VITALS: BP 127/88
[2017-08-24] MEDS ORDERED: Acetaminophen/HYDROcodone 325-5 MG Tab PO ONE (11:30)
--- NOTE | 2017-08-25 09:06 | OR ---
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 POSTOPERATIVE DIAGNOSIS: Perineal abscess. OPERATION PERFORMED: Examination under anesthesia with debridement of abscess and packing. FINDINGS: Posterior to the anus in the midline was an opening, which was explored and did not demonstrate any fistulous connection to the anoderm. It was localized and measured approximately 1.5 cm. This was opened up thoroughly and packed. DESCRIPTION OF PROCEDURE: The patient was taken to the operating room, placed in a supine position, connected to monitoring equipment, given IV sedation, and placed in lithotomy position with the buttocks taped apart. She was prepped with Betadine and draped off in a sterile fashion. Opening into the abscess was identified in the posterior midline, closer to the coccyx than it was to the anus. This was probed and no opening could be identified. The anal canal was palpated. No induration was noted. This was followed by placement of an anal speculum and instillation of hydrogen peroxide, but no connection was thus demonstrated with the dentate line. With this completed, the area was then opened up, thoroughly debrided by scraping, and then it was packed open. This left about a 1.5 cm opening there. There was minimal blood loss of approximately 2 to 3 mL. The patient tolerated the procedure and sent to recovery room in a stable condition. ANESTHESIA: ESTIMATED BLOOD LOSS: MMODAL /[id number]
== END 2017-08-24 10:50 | disposition home or self-care (01) ==
LOC: JD.SDS 07:13
PROVIDERS: ATTEND Surgery
DX: K61.0 Anal abscess (principal); F41.9 Anxiety disorder, unspecified; F31.9 Bipolar disorder, unspecified; I10 Essential (primary) hypertension; F17.210 Nicotine dependence, cigarettes, uncomplicated; Z98.818 Other dental procedure status; Z98.890 Other specified postprocedural states; Z79.899 Other long term (current) drug therapy; Z88.0 Allergy status to penicillin
CPT/HCPCS: 11042; 46050; A9270; J2250; J2405; J3010; J7120; 00902; J2704